=== PATIENT | male | born 1955 | race Caucasian/White ===

== ENCOUNTER → 2025-04-30 07:24 | Outpatient (REF) | payer OTHER, SELFPAY ==
[2025-04-30 08:21] VITALS: BP 139/84; BP_SYST 49
[2025-04-30 10:15] VITALS: BP 117/75
[2025-04-30 10:20] VITALS: BP 132/81; BP_SYST 54
[2025-04-30 10:45] VITALS: BP 124/76
== END ==
LOC: RADI 07:24
PROVIDERS: ATTENDING PHYSICIAN Surgery; FAMILY PHYSICIAN Physician Assistant; REFERRING PHYSICIAN Internal Medicine Hematology & Oncology
DX: C49.22 Malignant neoplasm of connective and soft tissue of left lower limb, including hip (principal); Z85.3 Personal history of malignant neoplasm of breast
CPT/HCPCS: 20206; 76942; 88305; 88333; 88334; 99152

== ENCOUNTER → 2025-06-14 13:24 | Outpatient (REF) | payer OTHER, SELFPAY | LOC: MRI 3T 13:24 | PROVIDERS: ATTENDING PHYSICIAN Radiology Radiation Oncology; FAMILY PHYSICIAN Physician Assistant | DX: C49.22 Malignant neoplasm of connective and soft tissue of left lower limb, including hip (principal) | CPT/HCPCS: 73720; A9575 ==

== ENCOUNTER → 2025-07-04 07:52 | Outpatient (REF) | payer OTHER, SELFPAY | LOC: RAD 07:52 | PROVIDERS: ATTENDING PHYSICIAN Surgery; FAMILY PHYSICIAN Physician Assistant | DX: C49.22 Malignant neoplasm of connective and soft tissue of left lower limb, including hip (principal); D48.19 Other specified neoplasm of uncertain behavior of connective and other soft tissue | CPT/HCPCS: 76882; 93971 ==